=== PATIENT | male | born 1955 | race Caucasian/White ===

== ENCOUNTER → 2019-04-29 | Outpatient (CLI) | payer OTHER ==
[~2019-04-29] MED LIST: DILT120C58 PO
[2019-04-29 07:26] LABS: BASOPHILS # (AUTO) 0.03 x10^3/uL (0-0.1); BASOPHILS % (AUTO) 0 % (0-1); EOSINOPHILS # (AUTO) 0.14 x10^3/uL (0-0.4); EOSINOPHILS % (AUTO) 2 % (1-7); LYMPHOCYTES % (AUTO) 24 % (22-44); MD NO; MEAN CORPUSCULAR HEMOGLOBIN 30.9 pg (27.5-34.5); MEAN CORPUSCULAR HGB CONC 33.7 g/dL (33.2-36.2); MEAN CORPUSCULAR VOLUME 91.9 fL (81-97); MEAN PLATELET VOLUME 8.3 fL (7.4-10.4); MONOCYTES # (AUTO) 0.62 x10^3/uL (0.2-0.8); MONOCYTES % (AUTO) 8 % (2-9); NEUTROPHILS # (AUTO) 5.06 x10^3/uL (1.8-6.8); NEUTROPHILS % (AUTO) 66 % (42-75); PLATELET COUNT 256 x10^3/uL (130-400); RED BLOOD COUNT 5.21 x10^6/uL (4.38-5.82); RED CELL DISTRIBUTION WIDTH 14.4 % (9.4-14.8)
[2019-04-29 07:40] LABS: ALBUMIN 3.9 g/dL (3.4-5.0); ANION GAP 3 mmol/L (5-15); CALCIUM 9.3 mg/dL (8.5-10.1); CHLORIDE 107 mmol/L (98-107)
[2019-04-29 07:51] LABS: ALANINE AMINOTRANSFERASE 53 U/L (12-78); ALKALINE PHOSPHATASE 81 U/L (45-117); BILIRUBIN,TOTAL 0.4 mg/dL (0.2-1.0); CHOL/HDL RATIO 7.1; CHOLESTEROL, TOTAL 299 mg/dL (140-239); CREATININE 1.08 mg/dL (0.7-1.3); HDL CHOL % 14 % (26-37); HDL CHOLESTEROL (DIRECT) 42 mg/dL (40-60); LDL CHOLESTEROL,CALCULATED 222 mg/dL (54-169); LDL/HDL RATIO 5.3 (0.5-3.0); T4 (THYROXINE) 7.9 mcg/dL (4.5-12.1); TOTAL PROTEIN 8.2 g/dL (6.4-8.2); TRIGLYCERIDES 177 mg/dL (50-200); VLDL CHOLESTEROL 35 mg/dL (0-25)
[2019-04-29 09:15] LABS: HEMOGLOBIN A1C 5.9 % (4.2-6.3)
== END | disposition home or self-care (01) ==
LOC: LAB 07:07
PROVIDERS: ATTEND Internal Medicine Cardiovascular Disease
DX: I10 Essential (primary) hypertension (principal); I48.0 Paroxysmal atrial fibrillation; R00.2 Palpitations; R73.01 Impaired fasting glucose; Z87.891 Personal history of nicotine dependence
CPT/HCPCS: 36415; 80053; 80061; 83036; 84436; 84443; 84481; 85025

== ENCOUNTER → 2019-07-02 | Outpatient (CLI) | payer OTHER ==
[2019-07-02 08:34] LABS: ALANINE AMINOTRANSFERASE 31 U/L (12-78); ALBUMIN 3.9 g/dL (3.4-5.0); ANION GAP 6 mmol/L (5-15); CALCIUM 9.3 mg/dL (8.5-10.1); CHLORIDE 105 mmol/L (98-107)
[2019-07-02 08:36] LABS: ALKALINE PHOSPHATASE 78 U/L (45-117); BILIRUBIN,TOTAL 0.4 mg/dL (0.2-1.0); CHOLESTEROL, TOTAL 300 mg/dL (140-239); HDL CHOLESTEROL (DIRECT) 43 mg/dL (40-60); TOTAL PROTEIN 8.3 g/dL (6.4-8.2); TRIGLYCERIDES 190 mg/dL (50-200); VLDL CHOLESTEROL 38 mg/dL (0-25)
[2019-07-02 08:37] LABS: HDL CHOL % 14 % (26-37); LDL CHOLESTEROL,CALCULATED 219 mg/dL (54-169); LDL/HDL RATIO 5.1 (0.5-3.0)
== END | disposition home or self-care (01) ==
LOC: LAB 08:07
PROVIDERS: ATTEND Physician Assistant Medical
DX: I10 Essential (primary) hypertension (principal); I48.0 Paroxysmal atrial fibrillation; E66.9 Obesity, unspecified; N28.9 Disorder of kidney and ureter, unspecified; R00.2 Palpitations; R73.01 Impaired fasting glucose
CPT/HCPCS: 36415; 80053; 80061

== ENCOUNTER → 2019-10-01 | Outpatient (CLI) | payer OTHER ==
[2019-10-01 07:30] LABS: ANION GAP 6 mmol/L (5-15); CALCIUM 9.6 mg/dL (8.5-10.1); CHLORIDE 106 mmol/L (98-107); CHOLESTEROL, TOTAL 197 mg/dL (140-239); CREATININE 1.22 mg/dL (0.7-1.3); TRIGLYCERIDES 138 mg/dL (50-200); VLDL CHOLESTEROL 28 mg/dL (0-25)
[2019-10-01 07:33] LABS: CHOL/HDL RATIO 4.3; HDL CHOL % 23 % (26-37); HDL CHOLESTEROL (DIRECT) 46 mg/dL (40-60); LDL CHOLESTEROL,CALCULATED 123 mg/dL (54-169); LDL/HDL RATIO 2.7 (0.5-3.0)
== END | disposition home or self-care (01) ==
LOC: LAB 07:03
PROVIDERS: ATTEND Physician Assistant Medical
DX: I48.0 Paroxysmal atrial fibrillation (principal); I10 Essential (primary) hypertension; E78.2 Mixed hyperlipidemia; E66.9 Obesity, unspecified; N28.9 Disorder of kidney and ureter, unspecified; R00.2 Palpitations; R73.01 Impaired fasting glucose
CPT/HCPCS: 36415; 80048; 80061

== ENCOUNTER 2020-01-04 07:17 | Outpatient (CLI) | payer MEDICARE | END 2020-01-04 23:59 | disposition home or self-care (01) | LOC: CVU 07:17 | PROVIDERS: ATTEND Physician Assistant Medical | DX: I35.1 Nonrheumatic aortic (valve) insufficiency (principal); I35.8 Other nonrheumatic aortic valve disorders; I48.0 Paroxysmal atrial fibrillation; E66.9 Obesity, unspecified; E78.2 Mixed hyperlipidemia; I10 Essential (primary) hypertension; N28.9 Disorder of kidney and ureter, unspecified; R00.2 Palpitations; R73.01 Impaired fasting glucose; B18.2 Chronic viral hepatitis C; R53.83 Other fatigue | CPT/HCPCS: 36415; 80053; 80061; 82607; 82746; 83036; 84403; 84443; 85025; 86803; 87521; 87522; 93306 ==

== ENCOUNTER → 2020-01-04 | Outpatient (CLI) | payer MEDICARE ==
[2020-01-04 07:43] LABS: BASOPHILS # (AUTO) 0.02 x10^3/uL (0-0.1); BASOPHILS % (AUTO) 0 % (0-1); EOSINOPHILS # (AUTO) 0.17 x10^3/uL (0-0.4); EOSINOPHILS % (AUTO) 2 % (1-7); LYMPHOCYTES # (AUTO) 1.68 x10^3/uL (1-3.4); LYMPHOCYTES % (AUTO) 20 % (22-44); MD NO; MEAN CORPUSCULAR HGB CONC 33.2 g/dL (33.2-36.2); MEAN CORPUSCULAR VOLUME 90.2 fL (81-97); MEAN PLATELET VOLUME 8.3 fL (7.4-10.4); MONOCYTES # (AUTO) 0.64 x10^3/uL (0.2-0.8); MONOCYTES % (AUTO) 8 % (2-9); NEUTROPHILS # (AUTO) 5.83 x10^3/uL (1.8-6.8); NEUTROPHILS % (AUTO) 70 % (42-75); PLATELET COUNT 209 x10^3/uL (130-400); RED BLOOD COUNT 4.79 x10^6/uL (4.38-5.82); RED CELL DISTRIBUTION WIDTH 14.3 % (9.4-14.8)
[2020-01-04 07:55] LABS: ALANINE AMINOTRANSFERASE 34 U/L (12-78); ALBUMIN 3.5 g/dL (3.4-5.0); ANION GAP 5 mmol/L (5-15); CALCIUM 9.8 mg/dL (8.5-10.1); CHLORIDE 108 mmol/L (98-107); CHOLESTEROL, TOTAL 160 mg/dL (140-239); CREATININE 1.26 mg/dL (0.7-1.3)
[2020-01-04 07:57] LABS: ALKALINE PHOSPHATASE 69 U/L (45-117); BILIRUBIN,TOTAL 0.3 mg/dL (0.2-1.0); CHOL/HDL RATIO 3.8; HDL CHOL % 26 % (26-37); HDL CHOLESTEROL (DIRECT) 42 mg/dL (40-60); LDL CHOLESTEROL,CALCULATED 99 mg/dL (54-169); LDL/HDL RATIO 2.4 (0.5-3.0); TOTAL PROTEIN 7.5 g/dL (6.4-8.2); TRIGLYCERIDES 96 mg/dL (50-200); VLDL CHOLESTEROL 19 mg/dL (0-25)
[2020-01-04 08:27] LABS: FOLATE LEVEL 10.7 ng/mL (3.1-17.5)
== END | disposition home or self-care (01) ==
LOC: LAB 07:23
PROVIDERS: ATTEND Physician Assistant Medical
DX: E78.2 Mixed hyperlipidemia (principal); E66.9 Obesity, unspecified; I10 Essential (primary) hypertension; I48.0 Paroxysmal atrial fibrillation; N28.9 Disorder of kidney and ureter, unspecified; R00.2 Palpitations; R73.01 Impaired fasting glucose; B18.2 Chronic viral hepatitis C; R53.83 Other fatigue
CPT/HCPCS: 36415; 80053; 80061; 82607; 82746; 83036; 84403; 84443; 85025; 86803; 87521; 87522

== ENCOUNTER → 2020-06-17 | Outpatient (CLI) | payer MEDICARE ==
[2020-06-17 08:11] LABS: ALANINE AMINOTRANSFERASE 34 U/L (12-78); ALBUMIN 3.7 g/dL (3.4-5.0); ANION GAP 6 mmol/L (5-15); CALCIUM 9.3 mg/dL (8.5-10.1); CHLORIDE 108 mmol/L (98-107); CHOLESTEROL, TOTAL 208 mg/dL (140-239); CREATININE 1.11 mg/dL (0.7-1.3)
[2020-06-17 08:13] LABS: ALKALINE PHOSPHATASE 69 U/L (45-117); BILIRUBIN,TOTAL 0.3 mg/dL (0.2-1.0); CHOL/HDL RATIO 4.4; HDL CHOL % 23 % (26-37); HDL CHOLESTEROL (DIRECT) 47 mg/dL (40-60); LDL CHOLESTEROL,CALCULATED 139 mg/dL (54-169); TOTAL PROTEIN 7.5 g/dL (6.4-8.2); TRIGLYCERIDES 111 mg/dL (50-200); VLDL CHOLESTEROL 22 mg/dL (0-25)
== END | disposition home or self-care (01) ==
LOC: LAB 07:35
PROVIDERS: ATTEND Physician Assistant Medical
DX: I10 Essential (primary) hypertension (principal); I48.0 Paroxysmal atrial fibrillation; E78.2 Mixed hyperlipidemia; E66.9 Obesity, unspecified; I77.810 Thoracic aortic ectasia; N28.9 Disorder of kidney and ureter, unspecified; R00.2 Palpitations; R73.01 Impaired fasting glucose
CPT/HCPCS: 36415; 80053; 80061; 83036

== ENCOUNTER → 2020-06-21 | Outpatient (CLI) | payer MEDICARE ==
[~2020-06-21] MED LIST changes: +ASPI81TA45 PO; +CO Q10 PO; +FISH OIL PO; +LISI-420 PO
[2020-06-21 09:24] LABS: BASOPHILS % (AUTO) 0 % (0-1); EOSINOPHILS % (AUTO) 2 % (1-7); LYMPHOCYTES % (AUTO) 26 % (22-44); MEAN CORPUSCULAR HEMOGLOBIN 30.9 pg (27.5-34.5); MEAN CORPUSCULAR HGB CONC 34.3 g/dL (33.2-36.2); MEAN PLATELET VOLUME 9.1 fL (7.4-10.4); MONOCYTES % (AUTO) 8 % (2-9); NEUTROPHILS % (AUTO) 64 % (42-75); PLATELET COUNT 260 x10^3/uL (130-400); RED BLOOD COUNT 5.14 x10^6/uL (4.38-5.82); RED CELL DISTRIBUTION WIDTH 14.3 % (9.4-14.8)
[2020-06-21 09:33] LABS: INTERNATIONAL NORMALIZED RATIO 1.01 (0.93-1.1); PROTHROMBIN TIME 10.7 Seconds (9.6-11.5)
[2020-06-21 10:15] LABS: MD SCAN
[2020-06-21 10:47] LABS: MICROSCOPIC NOT IND
== END | disposition home or self-care (01) ==
LOC: STAR 08:15
PROVIDERS: ATTEND Neurological Surgery
DX: Z01.810 Encounter for preprocedural cardiovascular examination (principal); Z01.811 Encounter for preprocedural respiratory examination; Z01.812 Encounter for preprocedural laboratory examination; M48.061 Spinal stenosis, lumbar region without neurogenic claudication; R79.1 Abnormal coagulation profile; R82.90 Unspecified abnormal findings in urine; I49.3 Ventricular premature depolarization; R94.31 Abnormal electrocardiogram [ECG] [EKG]; Z20.822 Contact with and (suspected) exposure to COVID-19
CPT/HCPCS: 71046; 81003; 85025; 85610; 85730; 87635; 93005

== ENCOUNTER → 2020-06-29 | Outpatient (CLI) | payer MEDICARE ==
[~2020-06-29] MED LIST changes: +HYDR-1067 PO; +METH750T87 PO
== END | disposition home or self-care (01) ==
LOC: CVU 10:35
PROVIDERS: ATTEND Physician Assistant Medical
DX: I08.8 Other rheumatic multiple valve diseases (principal); I48.0 Paroxysmal atrial fibrillation; I77.810 Thoracic aortic ectasia; I11.9 Hypertensive heart disease without heart failure
CPT/HCPCS: 93306

== ENCOUNTER → 2020-07-07 | Outpatient (CLI) | payer MEDICARE ==
[~2020-07-07] MED LIST changes: -LISI-420 PO; +LISI20TA21 PO; +OMNIPAQUE 350 MG/ML, 100ML BOTTLE ONE
== END | disposition home or self-care (01) ==
LOC: CFH 09:13
PROVIDERS: ATTEND Nurse Practitioner Family
DX: I77.810 Thoracic aortic ectasia (principal); I25.10 Atherosclerotic heart disease of native coronary artery without angina pectoris
CPT/HCPCS: 71275; Q9967

== ENCOUNTER → 2020-08-15 | Outpatient (CLI) | payer MEDICARE ==
[~2020-08-15] MED LIST changes: -OMNIPAQUE 350 MG/ML, 100ML BOTTLE ONE; +REGADENOSON 0.4 MG/5 ML SYRINGE ONE
== END | disposition home or self-care (01) ==
LOC: CFH 08:11
PROVIDERS: ATTEND Nurse Practitioner Family
DX: I25.10 Atherosclerotic heart disease of native coronary artery without angina pectoris (principal)
CPT/HCPCS: 78452; 93017; A9502; J2785

== ENCOUNTER 2020-09-09 08:25 | Outpatient (CLI) | payer MEDICARE ==
[~2020-09-09 08:25] MED LIST changes: -HYDR-1067 PO; +HYDR-2214 PO; -REGADENOSON 0.4 MG/5 ML SYRINGE ONE
[2020-09-09 09:04] LABS: CALCIUM 9.2 mg/dL (8.5-10.1)
[2020-09-09 09:08] LABS: ALANINE AMINOTRANSFERASE 36 U/L (12-78); ALKALINE PHOSPHATASE 67 U/L (45-117); BILIRUBIN,TOTAL 0.5 mg/dL (0.2-1.0); CHOL/HDL RATIO 4.2; CHOLESTEROL, TOTAL 193 mg/dL (140-239); CREATININE 1.09 mg/dL (0.7-1.3); HDL CHOL % 24 % (26-37); HDL CHOLESTEROL (DIRECT) 46 mg/dL (40-60); LDL CHOLESTEROL,CALCULATED 119 mg/dL (54-169); LDL/HDL RATIO 2.6 (0.5-3.0); TOTAL PROTEIN 7.7 g/dL (6.4-8.2); TRIGLYCERIDES 141 mg/dL (50-200); VLDL CHOLESTEROL 28 mg/dL (0-25)
[2020-09-09 09:15] LABS: ANION GAP 4 mmol/L (5-15); CHLORIDE 105 mmol/L (98-107)
== END 2020-09-09 23:59 | disposition home or self-care (01) ==
LOC: LAB 08:25
PROVIDERS: ATTEND Nurse Practitioner Family
DX: I10 Essential (primary) hypertension (principal); E78.2 Mixed hyperlipidemia; E66.9 Obesity, unspecified; I48.0 Paroxysmal atrial fibrillation; I77.810 Thoracic aortic ectasia; R73.01 Impaired fasting glucose; N28.9 Disorder of kidney and ureter, unspecified; R00.2 Palpitations
CPT/HCPCS: 36415; 80053; 80061

== ENCOUNTER → 2020-12-19 | Outpatient (CLI) | payer MEDICARE ==
[2020-12-19 07:45] LABS: ALANINE AMINOTRANSFERASE 36 U/L (12-78); ALBUMIN 3.6 g/dL (3.4-5.0); ANION GAP 4 mmol/L (5-15); CHLORIDE 106 mmol/L (98-107); CHOLESTEROL, TOTAL 165 mg/dL (140-239); CREATININE 0.99 mg/dL (0.7-1.3)
[2020-12-19 07:47] LABS: ALKALINE PHOSPHATASE 70 U/L (45-117); BILIRUBIN,TOTAL 0.4 mg/dL (0.2-1.0); CHOL/HDL RATIO 3.8; HDL CHOL % 27 % (26-37); HDL CHOLESTEROL (DIRECT) 44 mg/dL (40-60); LDL CHOLESTEROL,CALCULATED 96 mg/dL (54-169); LDL/HDL RATIO 2.2 (0.5-3.0); TOTAL PROTEIN 7.5 g/dL (6.4-8.2); TRIGLYCERIDES 127 mg/dL (50-200); VLDL CHOLESTEROL 25 mg/dL (0-25)
== END | disposition home or self-care (01) ==
LOC: LAB 07:15
PROVIDERS: ATTEND Internal Medicine Cardiovascular Disease
DX: I10 Essential (primary) hypertension (principal); I48.0 Paroxysmal atrial fibrillation; E66.9 Obesity, unspecified; E78.2 Mixed hyperlipidemia; G47.09 Other insomnia; G47.33 Obstructive sleep apnea (adult) (pediatric); I77.810 Thoracic aortic ectasia; M54.40 Lumbago with sciatica, unspecified side; N28.9 Disorder of kidney and ureter, unspecified; R00.2 Palpitations
CPT/HCPCS: 36415; 80053; 80061